=== PATIENT | male | born 1970 | race Caucasian/White ===

== ENCOUNTER → 2017-07-13 | Outpatient (CLI) | payer OTHER ==
--- NOTE | ~2017-07-13 | US5 ---
[facility] A Service of [facility] RADIOLOGY TEXT RESULTS PATIENT: NILA LEWIS LOCATION: [facility] : 70 UNIT #: [id number] AGE: [address]: Fredi Sosa MD SEX: M ORDER DR: [id number] [address] [address] [id number] O MR#: [id number] Acc #: [id number] NAME: NILA LEWIS : 1970 SEX: M STUDY DATE/TIME: 07/13/2017 8:19 UNIT: SG ROOM: STUDY DESCRIPTION: US Abdominal Complete Attending Physician: Fredi Sosa III, M.D. Referring Physician: Fredi Sosa III, M.D. Ordering Physician: Physician Non-Staff Primary Care Physician: Elza Amezcua Aprn MEDICAL IMAGING REPORT This report is preliminary unless electronic signature is present. EXAM Abdominal ultrasound complete 07/13/2017 INDICATIONS 47-year-old male with a history of hepatitis C virus diagnosed a year ago. TECHNIQUE Sonographic imaging of the abdomen was performed. We have no comparisons. FINDINGS The pancreas was obscured by bowel gas and not seen or evaluated. Segmentally visualized aorta and IVC unremarkable. Liver measures 14 cm long axis and the spleen measures 10 cm. No focal liver mass, ascites or intrahepatic ductal dilatation. Extrahepatic common bile duct could not be identified. There is cholelithiasis without additional ultrasound evidence of acute cholecystitis. Probable additional sludge in the gallbladder lumen. The kidneys are nonobstructed. The right measures 12.5 cm long axis and the left 12.5 cm as well. IMPRESSION 1. Cholelithiasis without additional ultrasound evidence of acute cholecystitis. 2. The extrahepatic common bile duct was not visualized or assessed. No intrahepatic ductal dilatation. Dictated by... Saad Beach M.D. THIS IS AN ELECTRONICALLY VERIFIED REPORT Saad Beach M.D. at 07/14/2017 7:38 AM JOVAN/asim [facility] A Service of [facility] RADIOLOGY TEXT RESULTS PATIENT: NILA LEWIS LOCATION: [facility] : [birth year] UNIT #: [id number] AGE: [address]: Fredi Sosa MD SEX: M ORDER DR: TD: 07/14/2017 05:28 JOB #: [id number] MEDICAL IMAGING REPORT Page 1 of 1
== END | disposition home or self-care (01) ==
LOC: SGUS 08:01
DX: B18.2 Chronic viral hepatitis C (principal); K80.20 Calculus of gallbladder without cholecystitis without obstruction
CPT/HCPCS: 76700